=== PATIENT | female | born 2000 | race Caucasian/White ===

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

== ENCOUNTER → 2024-03-17 | Outpatient (CLI) | payer BC ==
[2024-03-17 14:44] VITALS: BP 107/67; PULSE 88; RESP 16; TEMP 98.2
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
== END ==
LOC: 3 N SLEEP 13:51
PROVIDERS: ATTEND Internal Medicine Critical Care Medicine
CPT/HCPCS: 99202